=== PATIENT | male | born 1970 | race Hispanic/Latino ===

== ENCOUNTER 2024-12-10 15:14 | Emergency (ER) | payer OTHER ==
[~2024-12-10 15:14] MED LIST: Iopamidol 370 76% 100 ML VIAL ONE
[2024-12-10 16:21] LABS: #Basophils 0.03 10x3/uL (0.0-0.2); #Eosinophils 0.12 10x3/uL (0.0-0.7); #Monocytes 0.68 10x3/uL (0.11-0.59); #Neutrophils 6.08 10x3/uL (1.40-6.50); %Basophils 0.4 % (0.0-1.0); %Eosinophils 1.4 % (0.0-10.0); %Lymphocytes 17.3 % (21.0-51.0); %Monocytes 8.1 % (0.0-10.0); %Neutrophils 72.3 % (42.0-75.0); Hematocrit 36.5 % (42.0-52.0); Hemoglobin 12.2 g/dL (14.0-18.0); Mean Corpuscular Hemoglobin 29.8 pg (27.0-31.0); Mean Corpuscular Volume 89.2 fL (78.0-98.0); Platelet Count 271 10x3/uL (130-400); Red Blood Cell (RBC) Count 4.09 mill/uL (4.70-6.10); White Blood Cell (WBC) Count 8.40 10x3/uL (4.8-10.8)
[2024-12-10] MEDS ORDERED: Ketorolac Tromethamine 30 MG (1 mL) VIAL ONE ×2 (16:25→18:28)
[2024-12-10] MEDS ORDERED: Metoclopramide HCl 10 MG (2 mL) VIAL ONE (16:25)
[2024-12-10 16:32] LABS: ALT (SGPT) Less than 7 U/L (Less than 45); AST (SGOT) 15 U/L (11-34); Albumin 3.4 g/dL (3.1-4.5); Alkaline Phosphatase 81 U/L (40-110); Anion Gap 13 mmol/L (10-20); BUN (Urea Nitrogen) 11 mg/dL (8.4-25.7); Bilirubin, Total 0.6 mg/dL (0.3-1.2); Calc. Creatinine Clearance 0 mL/min (70-130); Calcium 9.1 mg/dL (7.8-10.44); Carbon Dioxide 28 mmol/L (22-29); Chloride 103 mmol/L (98-107); Globulin 3.7 g/dL (2.4-3.5); Glucose 225 mg/dL (70-105); Potassium 4.5 mmol/L (3.5-5.1); Sodium 139 mmol/L (136-145)
[2024-12-10] MEDS ORDERED: metroNIDAZOLE 500 MG (100 mL) BAG ONE (17:22)
[2024-12-10] MEDS ORDERED: Proparacaine 0.5% Opth 15 ML BOT ONE (17:51)
[2024-12-10] MEDS ORDERED: CEFAZOLIN 2 GM VIAL ONE (18:45)
[2024-12-10] MEDS ORDERED: Vancomycin 1 GM/200 ML (FROZEN) BAG ONE (19:22)
== END 2024-12-10 21:04 ==
LOC: ERS 15:14
DX: K11.20 Sialoadenitis, unspecified (principal); L03.211 Cellulitis of face; E11.9 Type 2 diabetes mellitus without complications; Z87.891 Personal history of nicotine dependence
CPT/HCPCS: 36416; 70450; 70487; 70491; 80053; 83605; 85025; 96374; 96375; 96376; J1885; J2270; J2765; J3373; Q9967